=== PATIENT | male | born 1935 | race Caucasian/White ===

== ENCOUNTER 2017-08-16 09:28 | Outpatient (CLI) | payer MEDICARE ==
--- NOTE | 2017-08-16 10:43 | RAD ---
CHEST TWO VIEWS: History: Dyspnea. Comparison: 10-16-03 FINDINGS: Lungs are clear. No pneumothorax or effusion. Cardiac silhouette and mediastinal contours are within normal limits. IMPRESSION: 1. No acute intrathoracic abnormality. 2. Old left sided rib fracture. POS: [facility]
== END 2017-08-16 09:29 | disposition home or self-care (01) ==
LOC: RAD 09:28
PROVIDERS: ATTEND Internal Medicine Critical Care Medicine
DX: R06.00 Dyspnea, unspecified (principal); Z87.81 Personal history of (healed) traumatic fracture
CPT/HCPCS: 71046

== ENCOUNTER 2018-05-31 13:17 | Outpatient (CLI) | payer MEDICARE ==
--- NOTE | 2018-05-31 14:59 | RAD ---
PA AND LATERAL VIEWS CHEST: Date: 05/31/18 HISTORY: Dyspnea. FINDINGS: Comparison made with exam of 08/16/17. The heart size is normal. The aorta is tortuous. The lungs are well expanded without focal areas of c onsolidation, pneumothorax, or pleural effusions. Old left-sided rib fracture is again seen. IMPRESSION: No radiographic evidence of acute cardiopulmonary process. POS: [facility]
== END 2018-05-31 13:18 | disposition home or self-care (01) ==
LOC: RAD 13:17
PROVIDERS: ATTEND Internal Medicine Critical Care Medicine
DX: R06.00 Dyspnea, unspecified (principal)
CPT/HCPCS: 71046

== ENCOUNTER 2020-12-30 11:25 | Outpatient (CLI) | payer MEDICARE | END 2020-12-30 11:26 | disposition home or self-care (01) | LOC: BICRAD 11:25 | PROVIDERS: ATTEND Internal Medicine Critical Care Medicine | DX: R06.00 Dyspnea, unspecified (principal) | CPT/HCPCS: 71046 ==